=== PATIENT | male | born 1975 | race Caucasian/White ===

== ENCOUNTER 2016-08-18 21:21 | Emergency (ER) | payer MEDICAID ==
[~2016-08-18] VITALS: Ht 167.6 cm; Wt 76.0 kg
[2016-08-18 22:12] VITALS: BP 114/72
== END 2016-08-18 23:52 | disposition left against medical advice (07) ==
LOC: ER 21:21
DX: R07.9 Chest pain, unspecified (principal); Z53.21 Procedure and treatment not carried out due to patient leaving prior to being seen by health care provider